=== PATIENT | male | born 1975 | race Caucasian/White ===

== ENCOUNTER 2019-09-25 06:56 | Emergency (ER) | payer OTHER ==
[~2019-09-25] VITALS: Ht 180.3 cm; Wt 115.7 kg
[2019-09-25] MEDS ORDERED: LORAZEPAM 0.50.5 MG PO (07:46)
[2019-09-25 07:53] LABS: ABSOLUTE NEUTROPHILS 3.7 thou/uL (1.4-8.2); BASOPHILS 1.1 % (0.0-2.0); EOSINOPHILS 3.5 % (0.0-3.0); HEMATOCRIT 45.4 % (42.0-52.0); HEMOGLOBIN 15.3 gm/dL (14.0-18.0); MCH 30.1 pg (26.0-34.0); MCHC 33.8 g/dL (28.0-37.0); MCV 89.2 fL (80.0-100.0); MONOCYTES 7.3 % (1.0-8.0); PLATELET COUNT 239 thou/uL (150-400); POLYS 57.1 % (36.0-66.0); RBC 5.09 mil/uL (4.50-6.00); RDW 13.5 % (10.5-14.5); WBC 6.4 thou/uL (4.0-11.0)
[2019-09-25 07:57] LABS: URINE BILIRUBIN NEGATIVE (Negative); URINE BLOOD NEGATIVE (Negative); URINE CLARITY CLEAR; URINE COLOR YELLOW; URINE GLUCOSE-RANDOM* NEGATIVE (Negative); URINE KETONES NEGATIVE (Negative); URINE LEUKOCYTES-REFLEX NEGATIVE (Negative); URINE NITRITE-REFLEX NEGATIVE (Negative); URINE PROTEIN (DIPSTICK) NEGATIVE (Negative); URINE SPECIFIC GRAVITY >= 1.030 (1.005-1.035); URINE UROBILINOGEN 0.2 E.U./dl (0.2-1.0)
--- NOTE | 2019-09-25 08:03 | EKG ---
[address] [address] [place] [address] ELECTROCARDIOGRAM REPORT Name: ADELINE BROWNLEE Room #: [facility].R.#: [id number] Admission: Attend Phys: Discharge: Date of : 77 Report #: [id number] THIS REPORT FOR: //name// [facility] ED Test Date: 2019-09-25 Test Time: 07:27:05 Pat Name: ADELINE BROWNLEE Department: Room: Gender: M [employer] Maker: : 1975 Requested By: Juan Pappas Order Number: [id number] MD: Ady Genao Measurements Intervals [place] Rate: 96 P: 64 UT: 161 QRS: 107 QRSD: 118 T: -17 QT: 363 QTc: 459 Interpretive Statements Sinus rhythm Nonspecific intraventricular conduction delay Small inferior Q waves Baseline wander in lead(s) V4 No previous ECG available for comparison Electronically Signed On 09-25-2019 8:02:50 [employer] by Ady Genao [email or web address] <ELECTRONICALLY SIGNED> By: Ady Genao MD, [facility] 09/25/19 0802 0727 0727 Ady Genao MD, FACC /EPI
[2019-09-25 08:05] LABS: ANION GAP 11 mmol/L (7-16); BUN 12 mg/dL (7-18); CALCIUM 9.3 mg/dL (8.5-10.1); CHLORIDE 105 mmol/L (98-107); CO2 26 mmol/L (21-32); CREATININE 1.1 mg/dL (0.7-1.3); GLUCOSE 126 mg/dL (74-106); POTASSIUM 3.9 mmol/L (3.5-5.1); SODIUM 142 mmol/L (136-145)
[2019-09-25 08:05] LABS: AMP/METHAMP Negative (Negative); BARBITURATES Negative (Negative); BENZODIAZEPINES Negative (Negative); COCAINE Negative (Negative); METHADONE Negative (Negative); OPIATES Negative (Negative); PCP Negative (Negative)
[2019-09-25 08:15] LABS: MAGNESIUM 1.8 mg/dL (1.8-2.4); SGOT 18 U/L (15-37); SGPT 52 U/L (30-65); TOTAL BILIRUBIN 0.4 mg/dL (<0.1-1.0); TOTAL PROTEIN 8.1 g/dL (6.4-8.2); TROPONIN-I <0.06 ng/mL (<0.06)
[2019-09-25 09:08] VITALS: BP 136/73
== END 2019-09-25 09:09 | disposition home or self-care (01) ==
LOC: ER 06:56
PROVIDERS: Emergency Medicine
DX: F41.9 Anxiety disorder, unspecified (principal); R06.4 Hyperventilation; R42 Dizziness and giddiness